=== PATIENT | male | born 1975 | race Asian ===

== ENCOUNTER 2021-12-17 15:48 | Emergency (ER) | payer MEDICAID, OTHER ==
[~2021-12-17] VITALS: Ht 170.2 cm; Wt 75.0 kg
[2021-12-17 15:53] VITALS: BP 104/66
[2021-12-17] MEDS ORDERED: valacyclovir 500mg tablet PO STA (17:11)
[2021-12-17] MEDS ORDERED: predniSONE 20 mg tablet PO ONE (17:15)
[2021-12-17] MEDS ORDERED: PRED20TA PO (17:17)
[2021-12-17] MEDS ORDERED: VALA10002 PO (17:17)
[2021-12-17] MEDS ORDERED: MINE3.5O43 TOP (17:39)
[2021-12-17] MEDS ORDERED: mineral oil/petrolatum ophthal oint LEFTEYE STA (18:15)
== END 2021-12-17 19:24 | disposition home or self-care (01) ==
LOC: ER 15:49
DX: B02.21 Postherpetic geniculate ganglionitis (principal); R29.810 Facial weakness; H92.09 Otalgia, unspecified ear; Z79.2 Long term (current) use of antibiotics; Z79.899 Other long term (current) drug therapy
CPT/HCPCS: 70450; 99284; J7512